=== PATIENT | female | born 1980 ===

== ENCOUNTER 2017-09-13 11:14 | Emergency (ER) | payer MEDICAID ==
--- NOTE | 2017-09-13 11:49 | ED PDOC ---
HPI: Chest Pain Time Seen by Provider: 09/13/17 11:42 Chief Complaint (Nursing): Chest Pain Past Medical History - Medical History PMH: Anxiety Denies: Chronic Kidney Disease - Family History Family History: States: Unknown Family Hx - Immunization History Hx Tetanus Toxoid Vaccination: No Hx Influenza Vaccination: No Hx Pneumococcal Vaccination: No - Home Medications Home Medications: Ambulatory Orders Medication Instructions Recorded Alprazolam 0.25 mg PO Q8 PRN 11/30/14 Ciprofloxacin/Ciprofloxa HCl 500 mg PO BID #14 tab 11/30/14 [Ciprofloxacin] Ibuprofen [Motrin] 600 mg PO Q6 PRN #20 tab 11/30/14 Oxycodone HCl/Acetaminophen 1 tab PO Q4 PRN #10 tab 11/30/14 [Percocet 325 mg-5 mg] Naproxen [Naprosyn] 500 mg PO BID PRN #30 tab 04/26/15 - Allergies Allergies/Adverse Reactions: Allergies Allergy/AdvReac Type Severity Reaction Status Date / Time No Known Allergies Allergy Verified 09/13/17 11:42 Disposition - Disposition
--- NOTE | 2017-09-13 11:55 | ED PDOC ---
HPI: Chest Pain Chief Complaint (Provider): chest pain History Per: Patient History/Exam Limitations: no limitations Onset/Duration Of Symptoms: Hrs Current Symptoms Are (Timing): Still Present Pain Scale Rating Of: 8 Quality: Sharp, Pressure Associated Symptoms: Nausea Exacerbating Factors: Deep Breathing Alleviating Factors: None <Cierra Gonzalez - Last Filed: 09/13/17 12:31> <Brianne Negrete - Last Filed: 09/13/17 14:51> Time Seen by Provider: 09/13/17 11:42 Chief Complaint (Nursing): Chest Pain Additional Complaint(s): 36 yo F, with no known chronic medical problems, hx anxiety, presented to ED around 11 am after midsternal chest pain started at 3 am; currently pain radiates to left neck and left arm. Describes pain as sharp, pressure, constant , and 8/10. Pain is exacerbated by taking deep breaths. Did not take anything at home, no alleviating factors. PMD: [facility], Dr. Dougherty Past Surg hx: left salpingoophrectomy due to ectopic preg Fam hx: htn, no history CAD or HI Soc hx: denies cigarette smoking, drinks alcohol on special occasions. daily marijuana use for insomnia/anxiety Allergies: nkda Meds: control pills; pt unsure which brand (Cierra Gonzalez) Past Medical History - Medical History PMH: Anxiety Denies: CAD, HTN, Hyperlipidemia, Chronic Kidney Disease - Surgical History Other surgeries: left salpingoophrectomy due to ectopic preg - Family History Family History: States: Unknown Family Hx - Living Arrangements Living Arrangements: With Family - Immunization History Hx Tetanus Toxoid Vaccination: No Hx Influenza Vaccination: No Hx Pneumococcal Vaccination: No <Cierra Gonzalez - Last Filed: 09/13/17 12:31> <Brianne Negrete - Last Filed: 09/13/17 14:51> Vital Signs: Last Vital Signs Temp 98.4 F 09/13/17 12:00 Pulse 84 09/13/17 12:00 Resp 16 09/13/17 12:00 BP 112/75 09/13/17 12:00 Pulse Ox 98 09/13/17 12:00 - Home Medications Home Medications: Ambulatory Orders Medication Instructions Recorded Alprazolam 0.25 mg PO Q8 PRN 11/30/14 Ciprofloxacin/Ciprofloxa HCl 500 mg PO BID #14 tab 11/30/14 [Ciprofloxacin] Ibuprofen [Motrin] 600 mg PO Q6 PRN #20 tab 11/30/14 Oxycodone HCl/Acetaminophen 1 tab PO Q4 PRN #10 tab 11/30/14 [Percocet 325 mg-5 mg] Naproxen [Naprosyn] 500 mg PO BID PRN #30 tab 04/26/15 - Allergies Allergies/Adverse Reactions: Allergies Allergy/AdvReac Type Severity Reaction Status Date / Time No Known Allergies Allergy Verified 09/13/17 11:42 JEFE Risk Score for UA/NSTEMI - JEFE Risk Score Age > 64: NO 3 or more CAD Risk Factors: NO Known CAD (Stenosis greater than 50%): NO Severe Angina: NO EKG ST changes greater than 0.5mm: NO JEFE Score: 0 Risk %: 5% <Cierra Gonzalez - Last Filed: 09/13/17 12:31> Curb-65 Severity Score - CURB-65 Severity Score Confusion: No Respiratory Rate greater than/equal to 30: No Systolic BP <90 or Diastolic BP less than/equal 60mmHg: No Age >64: No Curb-65 Score: 0 Percentage 30-day mortality: 0.6% <Cierra Gonzalez - Last Filed: 09/13/17 12:31> Wells Criteria for PE - Wells Criteria for Pulmonary Embolism Clinical Signs and Symptoms of DVT: No P.E is #1 Diagnosis, or Equally Likely: No Heart Rate >100: No Immobilization at least 3 days;Surgery previous 4 weeks: No Previous, objectively diagnosed PE or DVT: No Hemoptysis: No Malignancy w/treatment within 6 months, or palliative: No Total Score: 0 <Cierra Gonzalez - Last Filed: 09/13/17 12:31> Review of Systems ROS Statement: Except As Marked, All Systems Reviewed And Found Negative Constitutional: Negative for: Fever, Chills Cardiovascular: Positive for: Chest Pain. Negative for: Edema Respiratory: Negative for: Cough, Shortness of Breath Gastrointestinal: Negative for: Vomiting, Abdominal Pain, Diarrhea, Constipation Genitourinary Female: Negative for: Dysuria, Frequency Musculoskeletal: Positive for: Neck Pain (left), Arm Pain (left) Neurological: Negative for: Incoordination, Change in Speech, Confusion Psych: Positive for: Anxiety <Cierra Gonzalez - Last Filed: 09/13/17 12:31> Physical Exam - Physical Exam Appears: Positive for: Uncomfortable Skin: Positive for: Normal Color, Warm, Dry Eye Exam: Positive for: Normal appearance, EOMI ENT: Positive for: Pharynx Is (clear). Negative for: Nasal Congestion Neck: Positive for: Supple, Pain On Movement Of Neck (pain on palpation left side of neck) <Cierra Gonzalez - Last Filed: 09/13/17 12:31> - Laboratory Results Result Diagrams: 09/13/17 12:00 - ECG ECG: Positive for: Interpreted By Me (discussed w/ Dr. Negrete), Viewed By Me ECG Rhythm: Positive for: Normal ST Segment, Sinus Rhythm (84 bpm) <Cierra Gonzalez - Last Filed: 09/13/17 12:31> - Laboratory Results Result Diagrams: 09/13/17 12:00 09/13/17 12:00 <Brianne Negrete - Last Filed: 09/13/17 14:51> Medical Decision Making <Cierra Gonzalez - Last Filed: 09/13/17 12:31> <Brianne Negrete - Last Filed: 09/13/17 14:51> Medical Decision Making: - EKG - Troponin I - bHCG - CBC - CMP - CXR - Motrin 600 mg (Cierra Gonzalez) Time: 1300 -- Care was resumed by Dr. Brianne Negrete from Dr. Gonzalez. Time: 1423 -- 36 y/o female with no significant PMHx and no PE risk factors presents to the ED with mid-sternal chest pain and. On re-evaluation, patient states pain resolved with Motrin. Patient to be discharged home with a diagnosis of chest wall pain. EKG results show normal sinus rhythm. Patient advised to follow up with PMD in the [facility]. Patient will also be given a referral to a merchandise flow associate for further evaluation. Patient advised to return to the emergency room at any time for any new or worsening symptoms. -- Patient states she fully agrees with and understands discharge instructions. States that she agrees with the plan and disposition. Verbalized and repeated discharge instructions and plan. I have given the patient opportunity to ask any additional questions. Scribe Attestation: Documented by Erik Castillo acting as a scribe for Dr. Brianne Negrete MD. Provider Scribe Attestation: All medical record entries made by the Scribe were at my direction and personally dictated by me. I have reviewed the chart and agree that the record accurately reflects my personal performance of the history, physical exam, medical decision making, and the department course for this patient. I have also personally directed, reviewed, and agree with the discharge instructions and disposition. (Brianne Negrete) Disposition <Cierra Gonzalez - Last Filed: 09/13/17 12:31> - Disposition Disposition Time: 14:23 <Brianne Negrete - Last Filed: 09/13/17 14:51> - Clinical Impression Clinical Impression: Chest wall pain - Disposition Referrals: [facility] [Outside] [facility] [Outside] Avelino De La Rosa MD [Staff Provider] - Condition: IMPROVED Additional Instructions: Follow up in the clinic in 1-2 days for reevaluation take motrin for pain return to the ED with any worsening or concerning symptoms such as chest pain or shortness of breath Instructions: Costochondritis (DC) Forms: [employer] ([place])
[2017-09-13 12:12] VITALS: BP 112/75; PULSE 84; RESP 16; TEMP 98.4; O2SAT 98
[2017-09-13 12:22] LABS: BASO % 0.2 % (0.0-2.0); EOS % 0.4 % (0.0-4.0); HEMOGLOBIN 13.5 g/dL (12.0-16.0); LYMPH % 25.5 % (20.0-40.0); MEAN CELL VOLUME 88.4 fl (81.0-99.0); MEAN CORPUSCULAR HEMOGLOBIN 30.9 pg (27.0-31.0); MONO # 0.4 K/uL (0.0-0.8); MONO % 4.8 % (0.0-10.0); NEUT # 5.4 K/uL (1.8-7.0); NEUT % 69.1 % (50.0-75.0); RBC 4.37 Mil/uL (3.80-5.20); RED CELL DISTRIBUTION WIDTH 13.2 % (11.5-14.5); WHITE BLOOD COUNT 7.9 K/uL (4.8-10.8)
--- NOTE | 2017-09-13 12:34 | RAD ---
Date of service: 09/13/2017 HISTORY: chest pain COMPARISON: 08/26/2013 TECHNIQUE: Chest PA and lateral FINDINGS: LUNGS: No active pulmonary disease. PLEURA: No significant pleural effusion identified. No pneumothorax apparent. CARDIOVASCULAR: Normal. OSSEOUS STRUCTURES: No significant abnormalities. VISUALIZED UPPER ABDOMEN: Normal. OTHER FINDINGS: None. IMPRESSION: No active disease.
[2017-09-13 12:52] LABS: BLOOD UREA NITROGEN 10 mg/dl (7-17); GFR AFRICAN-AMERICAN > 60; GFR NON-AFRICAN AMERICAN > 60
[2017-09-13 12:53] LABS: ALB/GLOB RATIO 1.3 (1.0-2.1); ALBUMIN 4.4 g/dL (3.5-5.0); ALT/SGPT 22 U/L (9-52); AST/SGOT 26 U/L (14-36); CALCIUM 9.2 mg/dL (8.4-10.2)
== END 2017-09-13 14:40 | disposition home or self-care (01) ==
LOC: H.ER 11:14
DX: F41.9 Anxiety disorder, unspecified (principal)